=== PATIENT | male | born 1995 | race Caucasian/White ===

== ENCOUNTER 2024-11-27 21:37 | Emergency (ER) | payer OTHER ==
[~2024-11-27] VITALS: Ht 180.3 cm; Wt 105.0 kg
[2024-11-27] MEDS ORDERED: ASPIRIN 81 MG CHEW PO ONE (22:00)
[2024-11-27] MEDS ORDERED: NITROGLYCERIN 0.4 MG SUBL SL PRN (22:00)
[2024-11-27 22:15] LABS: BASOPHILS 0.4 % (0-2); EOSINOPHILS 0.6 % (0-6); HEMATOCRIT 45.7 % (35.0-50.0); HEMOGLOBIN 15.9 g/dL (12.0-18.0); LYMPHOCYTES 26.2 % (24-44); MCH 30.1 (27-36); MCHC 34.7 g/dl (30-36); MCV 86.6 fl (81-99); MONOCYTES 11.3 % (0-12); NEUTROPHILS 61.5 % (39-80); PLATELET COUNT 216 K/uL (140-440); RBC 5.27 M/ul (4.3-5.7); RDW 13.9 (10.5-15.0)
[2024-11-27 22:36] LABS: ALBUMIN 4.2 g/dL (3.4-5.0); ALBUMIN/GLOBULIN RATIO 1.17 (1.1-2.4); ALKALINE PHOSPHATASE 60 U/L (46-116); ALT (SGPT) 41 U/L (14-59); ANION GAP 17.3 (7-21); AST (SGOT) 20 U/L (15-37); BILIRUBIN, TOTAL 0.3 mg/dL (0.2-1.0); BUN/CREATININE RATIO 24.07 (6.0-28.6); CALCIUM 9.5 mg/dL (8.5-10.1); CARBON DIOXIDE 25 mmol/L (21-32); CHLORIDE 102 mmol/L (98-107); CREATININE, SERUM 1.08 mg/dL (0.70-1.30); GLOMERULAR FILTRATION RATE,EST 95 mL/min (>60); MAGNESIUM 1.9 mg/dL (1.8-2.4); POTASSIUM 3.3 mmol/L (3.5-5.1); PROTEIN, TOTAL 7.8 g/dL (6.4-8.2); UREA NITROGEN 26 mg/dL (7-18)
[2024-11-28 00:25] VITALS: BP 92/74
--- NOTE | 2024-11-28 22:43 | EKG ---
[facility] [address] [place] [address] Signed Normal sinus rhythm Normal ECG No previous ECGs available Confirmed by Nemo Hill MD () on 11/28/2024 10:43:12 PM Electronically Signed By: NEMO HILL MD 11/28/24 2243 PATIENT NAME: DECLAN MALDONADO Electrocardiogram DATE OF : [birth year] PHYSICIAN: NEMO HILL MD REPORT #: [id number] REPORT IS CONFIDENTIAL AND NOT TO BE RELEASED WITHOUT AUTHORIZATION
== END 2024-11-28 00:25 | disposition home or self-care (01) ==
LOC: ED 21:37
PROVIDERS: Emergency Medicine
DX: R07.89 Other chest pain (principal); Z88.1 Allergy status to other antibiotic agents
CPT/HCPCS: 36415; 71045; 80053; 83735; 84484; 85025; 93005; 93010; 99285-25; A9270

== ENCOUNTER 2025-01-05 13:00 | Emergency (ER) | payer OTHER ==
[~2025-01-05] VITALS: Ht 180.3 cm; Wt 99.2 kg
[2025-01-05] MEDS ORDERED: ondansetron HCL 4 MG/2 ML VIAL IV ONE (14:00)
[2025-01-05] MEDS ORDERED: SODIUM CHLORIDE 0.9% 1,000 ML IV ONE (14:00)
[2025-01-05] MEDS ORDERED: DIPHENOXYLATE/ATROPINE 1 EA TAB PO ONE (14:15)
[2025-01-05 14:28] LABS: BASOPHILS 0.1 % (0-2); EOSINOPHILS 0.5 % (0-6); HEMATOCRIT 42.5 % (35.0-50.0); HEMOGLOBIN 14.9 g/dL (12.0-18.0); LYMPHOCYTES 20.1 % (24-44); MCH 29.6 (27-36); MCHC 35.1 g/dl (30-36); MCV 84.5 fl (81-99); MONOCYTES 6.2 % (0-12); NEUTROPHILS 73.1 % (39-80); PLATELET COUNT 220 K/uL (140-440); RBC 5.04 M/ul (4.3-5.7); RDW 13.8 (10.5-15.0)
[2025-01-05 14:54] LABS: ALBUMIN 4.1 g/dL (3.4-5.0); ALBUMIN/GLOBULIN RATIO 1.28 (1.1-2.4); ANION GAP 11.2 (7-21); BILIRUBIN, TOTAL 0.6 mg/dL (0.2-1.0); BUN/CREATININE RATIO 15.83 (6.0-28.6); CALCIUM 8.6 mg/dL (8.5-10.1); CREATININE, SERUM 1.2 mg/dL (0.70-1.30); POTASSIUM 3.2 mmol/L (3.5-5.1); PROTEIN, TOTAL 7.3 g/dL (6.4-8.2)
[2025-01-05 15:45] LABS: BILIRUBIN, URINE POSITIVE (negative); BLOOD/HGB, URINE NEGATIVE (Negative); KETONE, URINE SMALL (Negative); LEUK ESTERASE, URINE NEGATIVE (negative); NITRITE, URINE NEGATIVE (negative)
[2025-01-05] MEDS ORDERED: ONDANSETRON ODT8 MG PO (16:57)
[2025-01-05] MEDS ORDERED: LOMOTIL TABLET1 EACH PO (16:57)
[2025-01-05 17:07] VITALS: BP 116/73
== END 2025-01-05 17:11 | disposition home or self-care (01) ==
LOC: ED 13:00
PROVIDERS: Emergency Medicine
DX: K21.9 Gastro-esophageal reflux disease without esophagitis (principal); E86.0 Dehydration; Z79.899 Other long term (current) drug therapy
CPT/HCPCS: 36415; 76870; 80053; 81003; 83690; 85025; 96361; 96374; 99284-25; J2405; J7030

== ENCOUNTER 2025-08-11 13:14 | Emergency (ER) | payer OTHER ==
[~2025-08-11] VITALS: Ht 180.3 cm; Wt 95.5 kg
[~2025-08-11 13:14] MED LIST: LOMOTIL TABLET1 EACH PO; ONDANSETRON ODT8 MG PO
[2025-08-11] MEDS ORDERED: DOXYCYCLINE MO100 MG PO (15:31)
[2025-08-11 15:53] LABS: BLOOD/HGB, URINE NEGATIVE (Negative); KETONE, URINE NEGATIVE (Negative); LEUK ESTERASE, URINE TRACE (negative); NITRITE, URINE NEGATIVE (negative)
[2025-08-11 16:05] LABS: BACTERIA, URINE NONE SEEN /hpf (negative); CASTS, URINE NONE SEEN \\lpf; CRYSTALS, URINE NONE SEEN (0-1+); EPITHELIAL CELLS, URINE SQUAMOUS 1+ /lpf (0-1+); REFLEX CULTURE, URINE No (No)
[2025-08-11 17:12] VITALS: BP 104/68
== END 2025-08-11 17:12 | disposition home or self-care (01) ==
LOC: ED 13:14
PROVIDERS: Emergency Medicine
DX: R30.0 Dysuria (principal); Z88.1 Allergy status to other antibiotic agents
CPT/HCPCS: 81001; 99283